=== PATIENT | female | born 1995 | race Caucasian/White ===

== ENCOUNTER 2020-02-29 12:06 | Emergency (ER) | payer MEDICAID ==
[~2020-02-29] VITALS: Ht 165.1 cm; Wt 50.0 kg
[2020-02-29] MEDS ORDERED: ONDANSETRON HCL 4MG/2ML INJ IV STA ×2 (12:44→14:48)
[2020-02-29] MEDS ORDERED: MORPHINE SULFATE 4 MG/ML CPJ (NOT FOR IM USE) IV STA ×2 (12:44→14:48)
[2020-02-29] MEDS ORDERED: SODIUM CHLORIDE 0.9% 1,000 ML IV ONE (14:48)
[2020-02-29 15:15] LABS: HEMATOCRIT. 40.1 % (36.0-48.0); HEMOGLOBIN. 13.6 g/dL (12.0-16.0); MEAN CORPUSCULAR HEMOGLOBIN 32.1 pg (28.0-32.0); MEAN CORPUSCULAR VOLUME 94.7 fL (81.0-99.0); PLATELET 229 x1000/uL (130-400); RED BLOOD CELL COUNT 4.23 mill/uL (4.2-5.4); RED CELL DISTRIBUTION WIDTH 12.3 % (11.6-14.6)
[2020-02-29 15:25] LABS: CHLORIDE 108 mEq/L (98-107)
[2020-02-29 15:33] LABS: INR 1.1; PROTHROMBIN TIME 11.4 sec (9.6-11.0)
[2020-02-29 15:45] LABS: HCG SCREEN NEGATIVE
[2020-02-29 16:08] VITALS: BP 112/73
[2020-02-29 16:24] LABS: PLATELET ESTIMATE NORMAL
== END 2020-02-29 16:36 | disposition short-term general hospital (02) ==
LOC: ER 12:21
DX: S42.351A Displaced comminuted fracture of shaft of humerus, right arm, initial encounter for closed fracture (principal); S52.591A Other fractures of lower end of right radius, initial encounter for closed fracture; V49.49XA Driver injured in collision with other motor vehicles in traffic accident, initial encounter; Y93.89 Activity, other specified; Y92.488 Other paved roadways as the place of occurrence of the external cause
CPT/HCPCS: 29105; 36415; 73060; 73090; 80053; 84703; 85025; 85610; 96374; 96375; 96376; 99285; J2270; J2405; J7030